=== PATIENT | female | born 1965 | race Caucasian/White ===

== ENCOUNTER → 2022-03-29 | Outpatient (CLI) | payer OTHER, SELFPAY ==
[2022-04-05 01:06] LABS: HPV Genotype 16, Aptima Negative (Negative)
[2022-04-06 20:54] LABS: HPV APTIMA, High Risk Positive (Negative); HPV Genotype 18,45 Aptima Negative (Negative)
== END | disposition home or self-care (01) ==
LOC: OPUS 17:01
PROVIDERS: PCP Family Medicine; Visit Provider Registered Nurse
DX: Z00.00 Encounter for general adult medical examination without abnormal findings (principal); Z12.4 Encounter for screening for malignant neoplasm of cervix; Z78.0 Asymptomatic menopausal state
CPT/HCPCS: 87624; 88175; G0145

== ENCOUNTER → 2022-04-15 | Outpatient (CLI) | payer OTHER, SELFPAY ==
--- NOTE | 2022-04-15 14:54 | US_ITS ---
EXAM: US PELVIS TRANSABDOMINAL AND TRANSVAGINAL, COMPLETE CLINICAL INDICATION: leiomyoma -- pelvic pain RLQ TECHNIQUE: Transabdominal and transvaginal pelvic ultrasound was performed with grayscale and color Doppler imaging. Transvaginal imaging was used for better evaluation of the endometrium and adnexa. This report was created using [employer] report generation technology. COMPARISON: None. FINDINGS: UTERUS/CERVIX: Retroverted in position, measuring 6.9 x 6.2 x 3.5 cm. Endometrium: 2.2 mm. Fibroid near the uterine fundus measuring up to 3.2 cm. RIGHT OVARY: 2.0 x 1.5 x 1.1 cm. Blood flow is present in the right ovary, with normal Doppler waveforms. LEFT OVARY: The left ovary was not visualized due to bowel gas. FREE FLUID: None. BLADDER: Unremarkable as visualized. Wall is normal thickness for degree of distention. VASCULATURE: Prominent left periuterine vessels. US/Pelvic (Non ) IMPRESSION: 1. Fibroid near the uterine fundus measuring up to 3.2 cm. 2. Prominent left periuterine vessels. This can be seen with pelvic congestion syndrome. Electronically Signed: Perry Villa MD at 1:51 EST ,
[2022-04-15 16:54] LABS: Syphilis Antibodies Non-reactive
[2022-04-15 18:34] LABS: Chlamydia Trachomatis by PCR Negative (Negative); Neisserai gonorrhoeae by PCR Negative (Negative); Probe Check PASS; Sample Adequacy Control PASS; Specimen Processing Control PASS
== END | disposition home or self-care (01) ==
PROVIDERS: PCP Family Medicine; Referring Provider Registered Nurse; Visit Provider Registered Nurse
DX: Z00.00 Encounter for general adult medical examination without abnormal findings (principal); R10.9 Unspecified abdominal pain; D21.9 Benign neoplasm of connective and other soft tissue, unspecified
CPT/HCPCS: 36415; 76830; 76856; 86780; 87491; 87591

== ENCOUNTER → 2022-06-07 | Outpatient (CLI) | payer OTHER, SELFPAY | END | disposition home or self-care (01) | LOC: LABSPEC 16:32 | PROVIDERS: PCP Family Medicine; Referring Provider Obstetrics & Gynecology; Visit Provider Obstetrics & Gynecology | DX: R30.0 Dysuria (principal) | CPT/HCPCS: 87086; 87088 ==

== ENCOUNTER → 2022-07-01 | Outpatient (CLI) | payer OTHER, SELFPAY ==
--- NOTE | 2022-07-01 15:02 | US_ITS ---
EXAM: US PELVIS TRANSABDOMINAL AND TRANSVAGINAL, COMPLETE CLINICAL INDICATION: uterine fibroid TECHNIQUE: Transabdominal and endovaginal pelvic ultrasound was performed with grayscale and color Doppler imaging. Endovaginal imaging was used for better evaluation of the endometrium and adnexa. This report was created using [employer] report [employer] technology. COMPARISON: US Pelvis Transabdominal Endovaginal dated 04/15/2022 FINDINGS: UTERUS/CERVIX: Uterus measures 6.3 cm in length and is retroflexed. Endometrial thickness is 3 mm. 3 cm right-sided uterine fibroid. RIGHT OVARY: Right ovary measures 2.7 x 1.4 x 1.1 cm. Blood flow is present in the right ovary. LEFT OVARY: Left ovary measures 1.5 x 1.2 x 0.9 cm. Blood flow is present in the left ovary. FREE FLUID: No adnexal mass or free pelvic fluid.
--- NOTE | 2022-07-01 15:02 | US_ITS ---
EXAM: US PELVIS TRANSABDOMINAL AND TRANSVAGINAL, COMPLETE CLINICAL INDICATION: uterine fibroid TECHNIQUE: Transabdominal and endovaginal pelvic ultrasound was performed with grayscale and color Doppler imaging. Endovaginal imaging was used for better evaluation of the endometrium and adnexa. This report was created using [employer] report [employer] technology. COMPARISON: US Pelvis Transabdominal Endovaginal dated 04/15/2022 FINDINGS: UTERUS/CERVIX: Uterus measures 6.3 cm in length and is retroflexed. Endometrial thickness is 3 mm. 3 cm right-sided uterine fibroid. RIGHT OVARY: Right ovary measures 2.7 x 1.4 x 1.1 cm. Blood flow is present in the right ovary. LEFT OVARY: Left ovary measures 1.5 x 1.2 x 0.9 cm. Blood flow is present in the left ovary. FREE FLUID: No adnexal mass or free pelvic fluid. US/Transvaginal Non- IMPRESSION: Retroflexed uterus containing a 3 cm fibroid. No interval change. Electronically Signed: Moiz Akhtar MD at 16:46 EDT ,
== END | disposition home or self-care (01) ==
LOC: US 14:58
PROVIDERS: PCP Family Medicine; Referring Provider Obstetrics & Gynecology; Visit Provider Obstetrics & Gynecology
DX: D25.9 Leiomyoma of uterus, unspecified (principal)
CPT/HCPCS: 76830; 76856

== ENCOUNTER → 2024-01-01 | Outpatient (CLI) | payer OTHER, SELFPAY ==
--- OUTSIDE RECORDS SUMMARY | 2024-01-01 16:53 | XMS RPT_ITS | CCD ---
Author Organization [facility] Care Team Providers Care Scroll Saw Operator Name Role Phone JUAN HEDRICK CNP Primary Care Unavailable JUAN HEDRICK CNP Consulting Unavailable JUAN HEDRICK CNP Attending Unavailable JUAN HEDRICK CNP Admitting Unavailable PROVIDER, UNKNOWN Consulting Unavailable PROVIDER, UNKNOWN Consulting Unavailable JUAN HEDRICK CNP Primary Care Unavailable JUAN HEDRICK CNP Consulting Unavailable JUAN HEDRICK CNP Attending Unavailable JUAN HEDRICK CNP Admitting Unavailable PROVIDER, UNKNOWN Consulting Unavailable PROVIDER, UNKNOWN Consulting Unavailable JUAN HEDRICK CNP Primary Care Unavailable JUAN HEDRICK CNP Consulting Unavailable JUAN HEDRICK CNP Attending Unavailable JUAN HEDRICK CNP Admitting Unavailable PROVIDER, UNKNOWN Consulting Unavailable PROVIDER, UNKNOWN Consulting Unavailable Allergies Allergy Classification Reported Allergen(s) Allergy Type Date of Onset Reaction(s) Facility (1 source) Penicillins Drug allergy (disorder) [facility] Repository Problems Problem Classification Problem Date Documented Da te Episodic/Chronic Mood disorders (1 source) Major depressive disorder, recurrent, moderate; Translations: [Major depressive disorder, recurrent, moderate] Onset: 06-22-2023 Chronic Results Test Name Value Interpretation Reference Range Facil ity 3D MAMM BILAT SCREENon 08-16 3D MAMM BILAT SCREEN [address] [address] Patient: MER ARORA. Phone#: : 1965 Age: 57 Gender: F Pt. Type: Out Account: [id number] Location: [facility] Ordering: JUAN HEDRICK Exam Date: 08/12/2022/14:00 Family Phys: Charge Code: [id number] Physician: [place] Order #: [id number] Dose#: PROCEDURE: BILATERAL SCREENING BREAST TOMOSYNTHESIS MAMMOGRAM WITH CAD COMPARISON: [facility], BILAT SCREENING, 04/11/2018, 11:09. [facility], 3D BILAT SCREEN, 01/11/2021, 14:04. INDICATIONS: SCREENING BREAST COMPOSITION: Heterogeneously dense, which may obscure small masses. FINDINGS: DIAGNOSTIC CATEGORY 1--NEGATIVE NO CHANGE FROM COMPARISON ASSESSMENT. RIGHT BREAST: No significant suspicious finding. No significant change has occurred. LEFT BREAST: No significant suspicious finding. No significant change has occurred. RECOMMENDATIONS: ROUTINE MAMMOGRAM AND CLINICAL EVALUATION IN 12 MONTHS. PLEASE NOTE: A NORMAL MAMMOGRAM DOES NOT EXCLUDE THE POSSIBILITY OF BREAST CANCER. A CLINICALLY SUSPICIOUS PALPABLE LUMP SHOULD BE BIOPSIED. THIS FACILITY UTILIZES A REMINDER SYSTEM TO ENSURE THAT ALL PATIENTS RECEIVE REMINDER LETTERS FOR APPOINTMENTS. THIS INCLUDES REMINDERS FOR ROUTINE MAMMOGRAMS, DIAGNOSITC MAMMOGRAMS, OR OTHER BREAST IMAGING INTERVENTIONS WHEN APPROPRIATE. THIS PATIENT WILL BE PLACED IN THE APPROPRIATE REMINDER SYSTEM. Dictated by: Emmanuelle Allen MD on 08/16/2022 at 16:06 Approved by: Emmanuelle Allen MD on 08/16/2022 at 16:09 Normal [facility] LUMBO SACRAL COMPLETE MIN 4 VIEWSon 08-09-2022 LUMBO SACRAL COMPLETE MIN 4 VIEWS [place] [address] Patient: MER ARORA Phone#: : 1965 Age: 57 Gender: F Pt. Type: Out Account: [id number] Location: [facility] Ordering: TAMMY LUCAS Exam Date: 08/09/2022/11:51 Family Phys: Charge Code: [id number] Physician: [place] Order #: [id number] Dose#: PROCEDURE: X-RAY LUMBAR SPINE COMPLETE MIN 4 VIEWS COMPARISON: [facility], LUMBO SACRAL COMPLETE MIN 4 VIEWS, 01/17/2013, 11:25. INDICATIONS: Low back pain. FINDINGS: BONES: Mild degenerative changes of the spine are present. DISC SPACES: Normal. No significant disc height narrowing, subluxation, or endplate abnormality. PARASPINOUS: Negative. No paraspinous abnormality is seen. OTHER: Tubal ligation clips are present. Phleboliths are present in the pelvis. CONCLUSION: 1. There is no evidence of acute abnormality. Dictated by: Emmnauelle Allen MD on 08/09/2022 at 12:25 Approved by: Emmanuelle Allen MD on 08/09/2022 at 12:26 Normal [facility] Final Surgical Pathology Rep dm 07-15-2020 Final Surgical Pathology Report . Pathology Reports Accession: Collected Date/Time: Received Date/Time: Pathologist: [id number] 07/10/2020 14:20 EDT 07/14/2020 14:20 EDT DO MARGARITA FORD Final Surgical Pathology Report DIAGNOSIS: A) HYPERPLASTIC POLYP, RECTOSIGMOID COLON. B) HYPERPLASTIC POLYP, RECTUM. COMMENT: [facility] [id number] CLINICAL INFORMATION: SCREEN FOR COLON CANCER SPECIMEN: A RECTOSIGMOID B RECTUM GROSS DESCRIPTION: A. Received in formalin, labeled with the patients name, Case #[id number], and rectosigmoid 4 taylor soft tissue fragments ranging from 0.1 to 0.3 cm. TS -1. B. Received in formalin labeled rectum is 1 taylor soft tissue fragment measuring 0.3 cm. TS -1. Dictated by [facility] [employer] MICROSCOPIC DESCRIPTION: Slides reviewed. Electronically Signed by Pathology Report verified by [facility] Electronically signed by MARGARITA FORD DO Sign out Date: 07/15/2020 13:15 Performing Lab: [facility], [address] [place] [address] ([place]) Comment on above: Performed By: #### SPFR #### [place] [address] HPVon 02-13-2020 HPV Interp Normal See Interp HPVN [facility] ([place]) Comment on above: Order Comment: Order placed by AP_HPV_OR ALAYNA rule from [id number] Result Comment: High Risk HPV Typing: NEGATIVE HPV types 16, 18, 31, 33, 35, 39, 45, 51, 52, 56, 58, 59, 66 and 68 DNA were undetectable or below the pre-set threshold. The kiersten High-Risk HPV DNA Test is not intended for use as a screening device for Pap normal women under age 30 and is not intended to substitute for regular Pap screening. The kiersten High-Risk HPV DNA Test is designed to augment existing methods for the detection of cervical disease and should be used in conjunction with clinical information derived from other diagnostic and screening tests, physical examinations and full medical history in accordance with appropriate patient management procedures. NOTE: A negative result does not preclude the presence of HPV infection because results depend on adequate specimen collection, absence of inhibitors and sufficient DNA to be detected. See Interp HPVN Performed By: #### H PV #### [place] [address] HPV Source Cervix Normal [facility] ([place]) Comment on above: Order Comment: Order placed by AP_HPV_OR ALAYNA rule from [id number] Performed By: #### H PV #### [place] [address] [facility] Cyt[facility] Reporton 2019 [facility] Cytology Report . Pathology Reports Accession: Collected Date/Time: Received Date/Time: Pathologist: [id number] 01/31/2020 14:15 EST 01/31/2020 18:00 EST [facility] Report SPECIMEN: Specimen Description: Liquid Prep w/ HPV Specimen: Cervical Screening or Diagnostic: Screening RELEVANT HISTORY: LMP: not given [id number] SPECIMEN ADEQUACY: SATISFACTORY FOR EVALUATION ENDOCERVICAL/TRANSFORM ATIONAL ZONE COMPONENT ABSENT/INSUFFICIENT INTERPRETATION/RESULTS : NEGATIVE FOR INTRAEPITHELIAL LESION OR MALIGNANCY ADJUNCTIVE TESTING: HIGH RISK HPV DNA TESTING ORDERED, REPORT TO FOLLOW UNDER SEPARATE COVER ORGANISMS: SHIFT IN CHRIS CONSISTENT WITH BACTERIAL VAGINOSIS. COMMENT: This Pap Test was successfully processed and evaluated with the assistance of the [employer] ThinPrep Test Imaging System. Electronically Signed by Pathology report verified by [facility] Screened by: KK Electronically signed by Violette CHRIS (ASCP) Sign-Out Date: 02/07/2020 14:13 Performing Lab: [address] Disclaimer The Pap test is a screening test for cervical cancer. As evidenced by published data, it is subject to both inherent false negative and false positive results. Your patient's results should be interpreted in context with pertinent clinical history including gynecological examination. Normal [facility] ([place]) Comment on above: Performed By: #### GYCR #### [address] [place], [place] [address] Encounters Encounter Date Encounter Type Care Provider Facility Start: 06-22-2023 ambulatory JUAN WALKER [facility] Start: 08-12-2022 End: 08-12-2022 ambulatory JUAN WALKER [facility] Start: 08-09-2022 End: 08-09-2022 ambulatory JUAN [facility] Payers Date Payer Category Payer Unknown [id number] 1965 Unknown [id number] 1965 Unknown [id number] 1965 Unknown [id number] Unknown [id number] Summary Purpose Family History No Family History Records FoundNo Family History Records Found Advance Directives No Advanced Directives Records FoundNo Advanced Directives Records Found Additional Source Comments INFORMATION SOURCE (unrecogn ized section and content) DATE CREATED AUTHOR 07/17/[address] [facility] ([place]) DATE CREATED AUTHOR AUTHOR'S ORGANIZ ATION 06/23/2023 [facility] FOR RECORDS PERTAINING TO PATIENTS WHO ARE OR HAVE BEEN ENROLLED IN A CHEMICAL DEPENDENCY/SUBSTANCEABUSE PROGRAM, SOME INFORMATION MAY BE OMITTED. This clinical summary was aggregated from multiple sources. Caution should be exercised in using it in the provision of clinical care. This summary normalizes information from multiple sources, and as a consequence, information in this document may materially change the coding, format and clinical context of patient data. In addition, data may be omitted in some cases. CLINICAL DECISIONS SHOULD BE BASED ON THE PRIMARY CLINICAL RECORDS. [facility] [facility]. provides no warranty or guarantee of the accuracy or completeness of information in this document.
== END | disposition home or self-care (01) ==
LOC: LABSPEC 13:44
PROVIDERS: PCP Family Medicine; Referring Provider Nurse Practitioner Women's Health; Visit Provider Nurse Practitioner Women's Health
DX: N89.8 Other specified noninflammatory disorders of vagina (principal)
CPT/HCPCS: 87070; 87205

== ENCOUNTER → 2024-02-19 | Outpatient (CLI) | payer OTHER, SELFPAY ==
[2024-02-19 17:31] LABS: Vitamin D,25 Hydroxy 7.9 ng/mL
[2024-02-26 09:23] LABS: HPV APTIMA, High Risk Negative (Negative)
== END | disposition home or self-care (01) ==
LOC: BWCLAB 14:56
PROVIDERS: PCP Family Medicine; Referring Provider Nurse Practitioner Women's Health; Visit Provider Nurse Practitioner Women's Health
DX: Z12.4 Encounter for screening for malignant neoplasm of cervix (principal); Z80.3 Family history of malignant neoplasm of breast; Z13.21 Encounter for screening for nutritional disorder
CPT/HCPCS: 82306; 87624; 88175; G0145